=== PATIENT | female | born 2000 | race Caucasian/White ===

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

== ENCOUNTER 2018-05-06 19:13 | Emergency (ER) | payer OTHER ==
--- NOTE | 2018-05-06 19:26 | EDPHY ---
H & P Stated Complaint: vertigo Time Seen by Provider: 05/06/18 19:25 HPI/ROS: CHIEF COMPLAINT: Vertigo HISTORY OF PRESENT ILLNESS: The patient presents to the ED with acute positional vertigo that began earlier today with associated nausea. The patient reports typical symptoms of positional vertigo worsened moving her head to the right. The patient denies any history of fall, trauma, neck pain or cervical manipulation. She denies any headache, peripheral numbness, weakness or other concerns. The patient did have a episode of BPV once before in the past that responded well to meclizine and Zofran. The patient denies any additional acute complaints. She otherwise is healthy. REVIEW OF SYSTEMS: A comprehensive 10 point review of systems is otherwise negative aside from elements mentioned in the history of present illness. Source: Patient Exam Limitations: No limitations - Personal History LMP (Females 10-55): 15-21 Days Ago Current Tetanus/Diphtheria Vaccine: Yes Current Tetanus Diphtheria and Acellular Pertussis (TDAP): Yes - Medical/Surgical History Hx Asthma: No Hx Chronic Respiratory Disease: No Hx Diabetes: No Hx Cardiac Disease: No Hx Renal Disease: No Hx Cirrhosis: No Hx Alcoholism: No Hx HIV/AIDS: No Hx Splenectomy or Spleen Trauma: No Other PMH: vertigo - Social History Smoking Status: Never smoked - Physical Exam Exam: General Appearance: Alert, no distress Eyes: Pupils equal and round no pallor or injection ENT, Mouth: Mucous membranes moist Respiratory: There are no retractions, lungs are clear to auscultation Cardiovascular: Regular rate and rhythm Gastrointestinal: Abdomen is soft and nontender, no masses, bowel sounds normal Neurological: A&O, normal motor function, normal sensory exam, normal cranial nerves, horizontal nystagmus Skin: Warm and dry, no rashes Musculoskeletal: Neck is supple nontender Extremities: symmetrical, full range of motion Psychiatric: Patient is oriented X 3, there is no agitation Constitutional: Initial Vital Signs Temperature (C) 36.4 C 05/06/18 19:15 Heart Rate 66 05/06/18 19:15 Respiratory Rate 16 05/06/18 19:15 Blood Pressure 126/85 H 05/06/18 19:15 O2 Sat (%) 98 05/06/18 19:15 O2 Delivery Mode Room Air Allergies/Adverse Reactions: No Known Allergies Allergy (Unverified 05/06/18 19:14) Home Medications: Medication Instructions Recorded Meclizine HCl [Meclizine HCl 25 mg 25 mg PO BID PRN #20 tab 05/06/18 (RX,OTC)] Ondansetron Odt [Zofran Odt] 4 mg PO Q4PRN PRN #20 tab 05/06/18 Medical Decision Making ED Course/Re-evaluation: The patient presents to the ED with fairly typical symptoms of benign positional vertigo. Her neurologic examination is otherwise unremarkable. The patient was treated with Zofran and meclizine orally at 7:45 p.m.. Patient was re-evaluated at 9:00 p.m.. She is feeling better. Her vertigo is not entirely resolved however her nausea and vomiting have. The patient will be discharged home with a prescription for meclizine and Zofran. She is given follow up with ENT for any unimproved symptoms. She is discharged home with customary aftercare instructions and return precautions. Differential Diagnosis: Differential diagnosis considered includes benign positional vertigo, labyrinthitis, central vertigo - Data Points Medications Given: Discontinued Medications Meclizine HCl (Meclizine Hcl) 25 mg PO EDNOW ONE Stop: 05/06/18 19:36 Last Admin: 05/06/18 19:48 Dose: 25 mg Ondansetron HCl (Zofran Odt) 4 mg PO EDNOW ONE Stop: 05/06/18 19:37 Last Admin: 05/06/18 19:48 Dose: 4 mg Ondansetron HCl (Zofran Odt 4 Mg Prepack#2) 1 btl TAKEHOME EDNOW ONE Stop: 05/06/18 20:22 Last Admin: 05/06/18 20:35 Dose: 1 btl Departure - Departure Disposition: Home, Routine, Self-Care Clinical Impression: Vertigo Condition: Good Instructions: Vertigo (ED) Additional Instructions: 1. Meclizine as directed for vertigo. 2. Zofran as needed for nausea. 3. Return to the ED for markedly worsening symptoms, headache, numbness, difficulty with speech or other concerns. 4. Please follow up with the ENT physician you have been referred to for any ongoing mild symptoms. Referrals: Juan Luis Mcguire MD [Medical Doctor] - As per Instructions Prescriptions: Meclizine HCl [Meclizine HCl 25 mg (RX,OTC)] 25 mg PO BID PRN #20 tab PRN Reason: for dizzyness Ondansetron Odt [Zofran Odt] 4 mg PO Q4PRN PRN #20 tab PRN Reason: For Nausea
[2018-05-06] MEDS ORDERED: MECLIZINE HCL 25 MG TAB PO ONE (19:35)
[2018-05-06] MEDS ORDERED: ONDANSETRON DISINTEGRATING 4 MG TAB PO ONE (19:36)
[2018-05-06] MEDS ORDERED: ONDANSETRON 4MG PREPACK#2 BTL TAKEHOME ONE (20:21)
[2018-05-06 20:35] VITALS: BP 111/72
== END 2018-05-06 20:55 | disposition home or self-care (01) ==
DX: H81.10 Benign paroxysmal vertigo, unspecified ear (principal)